=== PATIENT | female | born 1935 | race Caucasian/White ===

== ENCOUNTER 2020-03-22 06:37 | Day surgery (SDC) | payer MEDICARE ==
[~2020-03-22] VITALS: Ht 162.6 cm; Wt 85.7 kg
[~2020-03-22 06:37] MED LIST: AMLODIPINE2.5 MG PO; ARMOUR THYRO30 MG PO; ARMOUR THYRO60 MG PO; ASPIRIN81 MG PO; ATORVASTATIN CA40 MG PO; AUGMENTIN875TAB PO; BETAMETH DIP0.05 % EX; CASCARA SAGR450 MG PO; CIPROFLOXACN500 MG PO; CLONIDINE0.1 MG PO; D3400 UNIT PO; FLONASE NASAL50 MCG; HYDROCHLOROT12.5 MG PO; HYDROCHLOROT25 MG PO; LEVOTHYROXIN100 MC1 PO; LEVOTHYROXIN25 MC1 PO; LEVOTHYROXIN50 MC1 PO; LEVOTHYROXIN75 MC1 PO; LIPITOR80 M1 PO; LISINOPRIL10 MG PO; LOSARTAN POTASS25 MG PO; MARSHMALLOW ROOT PO; METFORMIN500 M2 PO; MUCINEX600 MG PO; MULTI VIT PO; OMEPRAZOLE40 MG PO; OREGANO PO; PLAVIX75 MG PO; PREDNISONE10 MG PO; PROAIR HFA; PROAIR HFA IN; RANITIDINE150 M1 PO; RANITIDINE150 MG OR; SIMVASTATIN20 MG PO; SYNTHROID100 MCG PO; SYNTHROID75 MCG PO; SYNTHROID88 MCG PO; VITAMIN D2000 UNI1 PO; VITAMIN D2000 UNIT OR; VITAMIN D32000 UNIT PO; ZITHROMAX250 MG PO; [UNRECOGNIZED DRUG - CODE] OR; [UNRECOGNIZED DRUG - OTHER] IN; [UNRECOGNIZED DRUG - OTHER] PO
[2020-03-22 09:04] VITALS: BP 178/74
== END 2020-03-22 09:30 | disposition home or self-care (01) ==
LOC: ENDO 06:37
PROVIDERS: ATTEND Surgery
PROC: 0DBC8ZX Excision of Ileocecal Valve, Via Natural or Artificial Opening Endoscopic, Diagnostic (ICD-10-PCS; principal; 2020-03-22)
PROC: 0DBB8ZX Excision of Ileum, Via Natural or Artificial Opening Endoscopic, Diagnostic (ICD-10-PCS; 2020-03-22)
DX: D17.5 Benign lipomatous neoplasm of intra-abdominal organs (principal); K57.30 Diverticulosis of large intestine without perforation or abscess without bleeding; K64.8 Other hemorrhoids; I10 Essential (primary) hypertension; E11.9 Type 2 diabetes mellitus without complications; Z79.84 Long term (current) use of oral hypoglycemic drugs; Z20.828 Contact with and (suspected) exposure to other viral communicable diseases

== ENCOUNTER 2024-05-30 13:20 | Emergency (ER) | payer MEDICARE ==
[~2024-05-30] VITALS: Ht 162.6 cm; Wt 98.3 kg
[2024-05-30] VITALS (12 sets, daily range): BP systolic 137–241; BP diastolic 59–124
[2024-05-30] MEDS ORDERED: DEXAMETHASONE SOD. PHOSPHATE 10 MG/ML VIAL IM ONE (13:45)
[2024-05-30] MEDS ORDERED: cloNIDine HCL 0.1 MG/TAB PO ONE (13:50)
[2024-05-30] MEDS ORDERED: TRAMADOL HYDROC50 M1 PO (14:48)
== END 2024-05-30 15:53 | disposition home or self-care (01) ==
LOC: ED 13:20
DX: M17.11 Unilateral primary osteoarthritis, right knee (principal); I10 Essential (primary) hypertension; E11.9 Type 2 diabetes mellitus without complications; Z79.84 Long term (current) use of oral hypoglycemic drugs